=== PATIENT | female | born 1970 | race Caucasian/White ===

== ENCOUNTER 2018-09-20 11:09 | Emergency (ER) | payer OTHER, SELFPAY ==
[2018-09-20 11:10] VITALS: BP 104/80; PULSE 94; RESP 18; TEMP 36.6; O2SAT 96; BMI 30.4
--- NOTE | 2018-09-20 11:25 | RAD_ITS ---
STUDY: X-RAY - UNILATERAL RIBS ( RIGHT ) WITH CHEST REASON FOR EXAM: Female, 48 years old. Pain. No known injury. TECHNIQUE - RIBS: 4 view(s) of the ribs. TECHNIQUE - CHEST: Single PA view of the chest. COMPARISON: None. FINDINGS - RIBS: Normal visualized ribs without a demonstrated fracture. FINDINGS - CHEST: Mild increased markings in the lingular segment of the left upper lobe. This may represent either atelectasis and/or scarring. There is no demonstrated pleural abnormality. Normal size heart. Normal mediastinum and opal. Normal visualized pulmonary arteries. Normal visualized aortic arch and descending thoracic aorta. Normal visualized thoracic spine. Normal visualized ribs, clavicles, and shoulders. There is no demonstrated abnormality of the visualized soft tissue structures of the upper abdomen. RAD/Ribs Uni Min 3V w/PA Chest IMPRESSION: RIBS: Normal x-ray examination of the ribs. CHEST: Mild increased markings in the lingular segment of the left upper lobe. Electronically Signed: Shmuel Yap, at 12:36 EDT , Service support ,
--- NOTE | 2018-09-20 11:30 | ED.VISSUMM ---
- ER Visit Summary Date of Service: 09/20/18 Chief Complaint: Right rib pain History of Present Illness: The patient is a 48 F whose spouse was diagnosed with influenza A. Patient developed a fever on the and her doctor called her in a prescription for Tamiflu. She started that on the evening of the . Last evening she noted sharp pain to the right lower ribs and a wheezing sound when she was breathing. She wanted to ensure the influenza was not worsening. Physical Examination: Vital signs unremarkable. Patient sitting upright in bed no acute distress. She is nontoxic appearing. Head neck examination unremarkable. Heart is regular rate and rhythm. Lung sounds are clear. She has reproducible tenderness in the right lower ribs along the anterolateral surface. There is no crepitus. Abdomen is soft and nontender. Test Results: Rib series with chest x-ray shows normal ribs. There are mild increased markings in the lingula. Emergency Department Course and Treatment: She is given a DuoNeb treatment. On repeat evaluation she reports slight improvement. She states she really does not feel that she is wheezing now, but it was worse last night when she was lying down. She will be given albuterol MDI at home. Patient's chest wall pain is completely reproducible. I do not believe this represents a pulmonary embolism. Treatment Plan: [] Disposition: Discharge Impression: Chest wall pain This note was generated with [employer] dictation software. It may contain incorrect words, spelling, and punctuation that were not noted in review of the chart prior to signing ED Disposition - Plan for ED Patient: Referrals: [facility] Doctor,Out of [Primary Care Provider] -
[2018-09-20 11:35] VITALS: PULSE 94; RESP 16
[2018-09-20] MEDS: Ipratropium/Albuterol Sulfate 3 ML AMPUL.NEB INHALATION (11:35)
--- NOTE | 2018-09-20 13:01 | ED.DEP ---
ED Disposition - Plan for ED Patient: Disposition: Home or Assisted Living Instructions: ED Strain Chest Wall Prescriptions: Albuterol Inhaler [Ventolin Hfa] 1 - 2 puff INHALATION Q4H PRN PRN #1 inhaler PRN Reason: Wheezing Referrals: [facility],Out of [Primary Care Provider] - 1 Week if not improving
[2018-09-20 13:23] VITALS: BP 107/81; PULSE 91; RESP 14; O2SAT 99
== END 2018-09-20 13:24 | disposition home or self-care (01) ==
PROVIDERS: Emergency Provider Emergency Medicine
DX: R07.89 Other chest pain (principal); R05 Cough; R50.9 Fever, unspecified; M79.10 Myalgia, unspecified site; G35 Multiple sclerosis
CPT/HCPCS: 71101; 94640; 99282

== ENCOUNTER 2018-10-23 16:34 | Emergency (ER) | payer OTHER, SELFPAY ==
[2018-10-23 16:35] VITALS: BP 138/78; PULSE 78; RESP 16; TEMP 36.6; O2SAT 97; BMI 29.1
--- NOTE | 2018-10-23 16:59 | RAD_ITS ---
STUDY: X-RAY - LEFT FOOT CLINICAL: Female, 48 years old. Pain TECHNIQUE: 3 view(s) of the foot. COMPARISON: None. FINDINGS: There is an oblique fracture of the diaphysis of the fifth metatarsal bone. Plantar calcaneal spurring. There are no radiodense foreign bodies. RAD/Foot min 3 Views IMPRESSION: Oblique fracture of the diaphysis of the fifth metatarsal bone. Plantar calcaneal spurring. Electronically Signed: Meet Katz, at 17:33 EDT Tel , Service support ,
--- NOTE | 2018-10-23 16:59 | RAD_ITS ---
STUDY: X-RAY - LEFT ANKLE REASON FOR EXAM: Female, 48 years old. Pain TECHNIQUE: 3 view(s) of the ankle. COMPARISON: None. FINDINGS: There is no evidence of fracture or dislocation. Plantar calcaneal spurring is present. There are no radiodense foreign bodies. RAD/Ankle min 3 Views IMPRESSION: No fracture or dislocation. Plantar calcaneal spurring. Electronically Signed: Meet Katz, at 17:26 EDT Tel , Service support ,
--- NOTE | 2018-10-23 18:12 | ED.VISSUMM ---
- ER Visit Summary Date of Service: 10/23/18 Chief Complaint: Left foot and ankle injury History of Present Illness: The patient is a 48 F who has a degree of foot drop from multiple sclerosis. Today she is going to stairs and tripped on the foot. She sustained an inversion injury fell down. She notes pain over the lateral aspect of the left foot. No fibular head pain. She notes some mild ankle pain around the lateral malleolus. Physical Examination: Afebrile vital signs are stable Gen: Well-nourished well-developed Head: Normocephalic atraumatic Eyes: Perrl EOMI ENT: TMs clear no rhinorrhea moist mucous membranes Neck: Supple no lymphadenopathy no JVD nontender CVS: Regular rate rhythm no murmurs normal S1-S2 Respiratory: No distress clear to auscultation bilaterally chest nontender Abdomen: Soft nontender nondistended normal bowel sounds no masses Back: Nontender Extremity: Palpation of the lateral malleolus. Patient has tenderness in the midshaft fifth metatarsal with some swelling. Skin: Normal color no rash Neuro: alert orientated ?3 CN II-XII intact normal strength sensation reflexes gait cerebellar Psych: Normal affect normal mood Test Results: X-rays revealed 1/5 metatarsal fracture of the shaft. Emergency Department Course and Treatment: Because the patient's foot drop fifth metatarsal fracture place her in a boot have her use crutches as needed. She does see podiatry and Carlos. She will follow-up with them. I will write for pain medication. Impression: 1. Left fifth metatarsal fracture This note was generated with [employer] dictation software. It may contain incorrect words, spelling, and punctuation that were not noted in review of the chart prior to signing ED Disposition - Plan for ED Patient: Disposition: Home or Assisted Living Instructions: ED Fx Foot Prescriptions: Hydrocodone Bitart/Apap 5-325 [[place] 5MG-325MG] 1 tab PO Q6H PRN PRN 3 Days #12 tab PRN Reason: Pain Additional Instructions: Please follow-up with your banking services advisor as soon as possible Crutches as needed until you can ambulate comfortably.
--- NOTE | 2018-10-23 18:16 | ED.DCSUM_ITS ---
- ER Visit Summary Date of Service: 10/23/18 Chief Complaint: Left foot and ankle injury History of Present Illness: The patient is a 48 F who has a degree of foot drop from multiple sclerosis. Today she is going to stairs and tripped on the foot. She sustained an inversion injury fell down. She notes pain over the lateral aspect of the left foot. No fibular head pain. She notes some mild ankle pain around the lateral malleolus. Physical Examination: Afebrile vital signs are stable Gen: Well-nourished well-developed Head: Normocephalic atraumatic Eyes: Perrl EOMI ENT: TMs clear no rhinorrhea moist mucous membranes Neck: Supple no lymphadenopathy no JVD nontender CVS: Regular rate rhythm no murmurs normal S1-S2 Respiratory: No distress clear to auscultation bilaterally chest nontender Abdomen: Soft nontender nondistended normal bowel sounds no masses Back: Nontender Extremity: Palpation of the lateral malleolus. Patient has tenderness in the midshaft fifth metatarsal with some swelling. Skin: Normal color no rash Neuro: alert orientated ?3 CN II-XII intact normal strength sensation reflexes gait cerebellar Psych: Normal affect normal mood Test Results: X-rays revealed 1/5 metatarsal fracture of the shaft. Emergency Department Course and Treatment: Because the patient's foot drop fifth metatarsal fracture place her in a boot have her use crutches as needed. She does see podiatry and Carlos. She will follow-up with them. I will write for pain medication. Impression: 1. Left fifth metatarsal fracture This note was generated with [employer] dictation software. It may contain incorrect words, spelling, and punctuation that were not noted in review of the chart prior to signing ED Disposition - Plan for ED Patient: Disposition: Home or Assisted Living Instructions: ED Fx Foot Prescriptions: Hydrocodone Bitart/Apap 5-325 [[place] 5MG-325MG] 1 tab PO Q6H PRN PRN 3 Days #12 tab PRN Reason: Pain Additional Instructions: Please follow-up with your toll patrolman as soon as possible Crutches as needed until you can ambulate comfortably.
== END 2018-10-23 18:50 | disposition home or self-care (01) ==
PROVIDERS: Emergency Provider Emergency Medicine; Family Provider Pediatrics; PCP Pediatrics
DX: S92.352A Displaced fracture of fifth metatarsal bone, left foot, initial encounter for closed fracture (principal); W01.0XXA Fall on same level from slipping, tripping and stumbling without subsequent striking against object, initial encounter; Y93.9 Activity, unspecified; Y92.89 Other specified places as the place of occurrence of the external cause; Y99.9 Unspecified external cause status; M21.379 Foot drop, unspecified foot; G35 Multiple sclerosis
CPT/HCPCS: 73610; 73630; 99283; J7030; A4216

== ENCOUNTER 2019-06-22 07:53 | Emergency (ER) | payer OTHER, SELFPAY ==
[2019-06-22 07:54] VITALS: BP 159/99; PULSE 129; RESP 24; TEMP 36.6; O2SAT 99; BMI 29.9
--- NOTE | 2019-06-22 08:12 | RAD_ITS ---
STUDY: X-RAY - SOFT TISSUE NECK REASON FOR EXAM: Female, 49 years old. COUGH, DYSPNEA; EPIGLOTTITIS TECHNIQUE: 2 view(s) of the neck were obtained. COMPARISON: None. FINDINGS: Normal visualized nasopharynx, oropharynx, hypopharynx. Normal epiglottis. Normal visualized subglottic tracheal air column. Normal prevertebral soft tissue structures. The soft tissue structures are unremarkable. RAD/Neck for Soft Tissue IMPRESSION: Unremarkable epiglottis. Electronically Signed: Isabell Sosa MD at 8:39 EST Tel , Service support ,
--- NOTE | 2019-06-22 08:20 | RAD_ITS ---
STUDY: X-RAY CHEST REASON FOR EXAM: Female, 49 years old. COUGH TECHNIQUE: AP and lateral views of the chest. COMPARISON: None. FINDINGS: The lungs are clear and expanded. There is no demonstrated pleural abnormality. Normal size heart. Normal mediastinum and opal. Normal visualized pulmonary arteries. Normal visualized aortic arch and descending thoracic aorta. Normal visualized thoracic spine. Normal visualized ribs, clavicles, and shoulders. There is no demonstrated abnormality of the visualized soft tissue structures of the upper abdomen. RAD/Chest PA and Lateral IMPRESSION: Normal x-ray examination of the chest. Electronically Signed: Arabella Robertson, at 9:11 EST Tel , Service support ,
[2019-06-22] MEDS: MethylPREDNISolone 125 MG/2 ML Vial IV (08:32)
[2019-06-22] MEDS: 0.9% Normal Saline 1,000 ML 150 ML IV (08:32)
[2019-06-22 08:43] LABS: Absolute Lymphocyte Count 3.85 X10^3/uL (0.83-4.51); Absolute Neutrophil Count 3.5 X10^3/uL (2.0-7.7); Basophil# 0.03 X10^3/uL; Basophil% 0.3 % (0-1); Eosinophil# 0.22 X10^3/uL; Eosinophils% 2.5 % (0-5); Hematocrit 43.2 % (37-47); Hemoglobin 14.8 g/dL (12.0-15.0); Lymphocyte # 3.85 X10^3/ul (4.0); Lymphocyte % 44.3 % (19-41); Mean Corp Hgb Conc 34.3 g/dL (32-36); Mean Corpuscular Hgb 30.1 pg (27.0-32.0); Mean Corpuscular Volume 87.8 fL (81-99); Mean Platelet Vol. 9.2 fl (6.2-12.0); Monocyte# 1.03 X10^3/uL; Monocyte% 11.8 % (0-10); NRBC Flagged by Analyzer 0.3 % (0-5); Neutrophil # 3.53 X10^3/uL (2.7-7.7); Neutrophil % 40.6 % (47-70); Platelet Count 213 K/mm3 (150-450); RBC Distribution Width CV 13.4 % (11.6-14.6); RBC Distribution Width SD 43.1 fl (35.1-43.9); Red Blood Count 4.92 M/mm3 (4.2-5.4); White Blood Count 8.7 K/mm3 (4.4-11.0)
[2019-06-22 08:55] VITALS: O2SAT 97
[2019-06-22 08:55] LABS: Anion Gap 8 (5-15); BUN 11 mg/dL (7-18); BUN/Creat Ratio 13.5 RATIO (10-20); Calcium,Total 9.9 mg/dL (8.5-10.1); Chloride 106 mmol/L (98-107); Creatinine, Serum 0.81 mg/dL (0.55-1.02); EST Glomerular Filtration Rate 80 mL/min (>60); Est Glom Filt Rate - Afr Amer 97 mL/min (>60); Estimated Creatinine Clearance 76.43 ml/min; Glucose 105 mg/dL (74-106); Potassium 3.6 mmol/L (3.5-5.1); Sodium Level 139 mmol/L (136-145)
[2019-06-22 08:57] VITALS: BP 133/93; PULSE 88; RESP 16; O2SAT 99
[2019-06-22 09:02] VITALS: PULSE 127; RESP 22
[2019-06-22] MEDS: Ipratropium/Albuterol Sulfate 3 ML AMPUL.NEB INHALATION (09:02)
[2019-06-22] MEDS: Albuterol 2.5 MG/3 ML VIAL.NEB. INHALATION (09:02)
--- NOTE | 2019-06-22 09:33 | ED.DCSUM_ITS ---
History of Present Illness Chief Complaint: Shortness of Breath Informant: Patient, Family Narrative: For the past 2 days the patient has had a cough and raspy voice. This morning she notes shortness of breath states she cannot seem to catch her breath. No fever. No known lung conditions. She is a schoolteacher of the fifth grade. Past Medical History - Allergies and Home Meds Allergies/Adverse Reactions: Allergies No Known Allergies Allergy (Verified 06/22/19 07:56) Primary Care Physician: Aileen Jackson MD [Primary Care Provider] - Smoking Status: Never smoker Review of Systems General: Reports: Malaise. Denies: Chills, Fever, Sweats Eyes: Denies: Visual changes - bilaterally, Diplopia ENT: Reports: Rhinorrhea, Sore throat. Denies: Left ear pain, Right ear pain Cardiovascular: Denies: Chest pain, Palpitations Respiratory: Reports: Dyspnea, Cough. Denies: Dyspnea on exertion Gastrointestinal: Denies: Abdominal pain, Nausea, Vomiting, Diarrhea, Melena, Hematochezia Genitourinary: Denies: Dysuria, Hematuria, Frequency Musculoskeletal: Denies: Back pain, Extremity Pain Skin: Denies: Rash, Wounds Neurological: Denies: Headache, Weakness, Numbness Psych: Denies: Depression, Anxiety, Suicidal thoughts, Suicidal ideations Endocrine: Denies: Polyuria, Polydipsia, Heat intolerance, Cold intolerance Hematologic: Denies: Easy bruising, Easy bleeding, Lymphadenopathy Allergy: Denies: Uticaria, Swelling of the mouth Physical Exam Vital Signs/Narrative: Vital Signs Temp Pulse Resp BP Pulse Ox 06/22/19 08:57 88 16 133/93 H 99 06/22/19 07:54 98 F 129 H 24 H 159/99 H 99 General: Well nourished, Well developed, No Acute Distress Head: Normocephalic, Atraumatic Eyes: Perrl, EOMI ENT: Moist mucous membranes, Nasal congestion, - Neck: Supple, Nontender Cardiovascular: Regular rate, Regular rhythm, No murmurs Respiratory: Chest nontender, Wheezing - expiratory, Decreased Air Movement Abdomen: Soft, Nontender, Nondistended, Normal bowel sounds Back: Nontender, Normal Inspection Extremities: Nontender, No edema Skin: Normal color, No rash Neurological: Alert, Oriented x3, Cranial nerves II-XII grossly intact, Normal Strength, Normal Sensation Psychological: - - anxious Diagnostic/Tx/Re-eval - Medical Decision Making Patient was taken for x-rays of the soft tissue of the neck and chest x-ray which did not reveal any evidence of epiglottitis or obvious infiltrate. Basic labs were normal. RSV and influenza were negative. Patient received Solu- Medrol and breathing treatments. Repeat examination she is breathing easier and there is better air exchange. She was observed and is continuing to do well. Patient will be discharged home with an albuterol MDI as well as prednisone. Return instructions given a note understanding. Of note her discharge heart rate is tacky but she is also opposed breathing treatments. ED Disposition - Plan for ED Patient: Disposition: Home or Assisted Living Instructions: BRONCHITIS with Wheezing (Adult) Prescriptions: Prednisone [Deltasone] 60 mg PO DAILY #12 tab Prescription Printed Albuterol Inhaler [Ventolin Hfa] 2 puff INHALATION Q4H PRN PRN #1 inhaler PRN Reason: Wheezing Prescription Printed Referrals: Aileen Jackson MD [Primary Care Provider] - 3-5 Days if not improving
--- NOTE | 2019-06-22 10:04 | CPS ---
x1 Albuterol given as well
[2019-06-22 12:44] VITALS: BP 111/71; PULSE 115; RESP 18; O2SAT 94
== END 2019-06-22 12:45 | disposition home or self-care (01) ==
PROVIDERS: Emergency Provider Emergency Medicine; Family Provider Family Medicine; PCP Family Medicine
DX: J40 Bronchitis, not specified as acute or chronic (principal)
CPT/HCPCS: 70360; 71046; 80048; 85025; 87804; 87807; 94640; 96361; 96374; 99251; 99284; G0463

== ENCOUNTER → 2023-02-16 | Outpatient (CLI) | payer OTHER, SELFPAY ==
--- NOTE | 2023-02-16 09:11 | BI_ITS ---
MAMMOGRAPHY - BILATERAL SCREENING REASON FOR EXAM: Female, 53 years old. Routine annual screening examination. PERTINENT HISTORY: Non-contributory. TECHNIQUE: Digital bilateral breast leydi (3D mammographic acquisition) in the CC and MLO projections. 2-D mediolateral oblique (MLO) and craniocaudad (CC) views of both breasts were obtained. CAD: Full Field Digital Mammography with Computer Added Detection was performed. COMPARISON: Comparison is made with prior outside examination dated June 23, 2013. FINDINGS: Breast Composition: There are scattered areas of fibroglandular density. There are no dominant masses or suspicious calcifications. Stable asymmetry of breast tissue with more breast tissue is seen in the left breast as compared to the right side. Small benign-appearing bilateral axillary lymph nodes. No other significant abnormalities are identified. There has been no significant change since the prior study. BI/SCRN MAMM (CAD)W/LEYDI BILAT IMPRESSION: Stable bilateral screening mammogram. Yearly follow-up mammogram recommended. (A) ASSESSMENT CATEGORY: BIRADS Category 2: Benign. A letter regarding these results will be sent to the patient by the facility within 30 days. Approximately 10% of breast cancers are not detected by mammography. A normal mammogram should not delay biopsy of a clinically suspicious abnormality. [id number] Electronically Signed: Shmuel Yap MD at 10:12 EDT ,
[2023-02-21 12:09] LABS: HPV APTIMA, High Risk Negative (Negative)
== END | disposition home or self-care (01) ==
PROVIDERS: PCP Family Medicine; Referring Provider Advanced Practice Midwife; Visit Provider Advanced Practice Midwife
DX: Z12.31 Encounter for screening mammogram for malignant neoplasm of breast (principal)
CPT/HCPCS: 77063; 77067; 87624; 88175; G0145

== ENCOUNTER → 2025-03-12 | Outpatient (CLI) | payer OTHER, SELFPAY ==
--- NOTE | 2025-03-12 08:45 | BI_ITS ---
EXAM: SCRN MAMM (CAD)W/LEYDI BILAT DATE: 03/12/2025 CLINICAL HISTORY: F, Age 55 y/o , SCREEN FOR BREAST CANCER No family history. TECHNIQUE: Procedure Code: [id number] Modality: MG Procedure: SCRN MAMM (CAD)W/LEYDI BILAT COMPARISON: Prior exam(s) dated February 16, 2023.. FINDINGS: TISSUE DENSITY: There are scattered areas of fibroglandular density. Bilateral Breast Mammographic Findings: No significant masses, calcifications or other abnormalities are identified. Stable asymmetry of breast tissue were more breast tissue is seen in the upper central portion of the left breast as compared to the right side. No suspicious masses, areas of developing architectural distortion, or suspicious calcifications. There has been no significant interval change. BI/SCRN MAMM (CAD)W/LEYDI BILAT IMPRESSION: Stable screening bilateral mammogram. OVERALL FINAL ASSESSMENT BI-RADS 2: BENIGN RECOMMENDATION: Routine annual follow-up in 1 Year A letter with findings and recommendations will be mailed to the patient. Reading Location: [place] [id number]
== END | disposition home or self-care (01) ==
LOC: OPBI 08:29
PROVIDERS: PCP Family Medicine; Referring Provider Obstetrics & Gynecology; Visit Provider Obstetrics & Gynecology
DX: Z12.31 Encounter for screening mammogram for malignant neoplasm of breast (principal)
CPT/HCPCS: 77063; 77067